=== PATIENT | male | born 1975 | race Caucasian/White ===

== ENCOUNTER 2018-06-05 12:39 | Inpatient (IN) | payer OTHER ==
[~2018-06-05] VITALS: Ht 175.3 cm; Wt 112.3 kg
[2018-06-05] MEDS ORDERED: SODIUM CHLORIDE FLUSH 10ML SYR IVF ONE (13:00)
[2018-06-05 13:23] LABS: BASOPHILS # (AUTO) 0.03 x10^3/uL (0-0.1); BASOPHILS % (AUTO) 1 % (0-1); EOSINOPHILS # (AUTO) 0.05 x10^3/uL (0-0.4); EOSINOPHILS % (AUTO) 1 % (1-7); LYMPHOCYTES # (AUTO) 1.67 x10^3/uL (1-3.4); LYMPHOCYTES % (AUTO) 26 % (22-44); MD NO; MEAN CORPUSCULAR HEMOGLOBIN 30.9 pg (27.5-34.5); MEAN CORPUSCULAR HGB CONC 34.3 g/dL (33.2-36.2); MEAN CORPUSCULAR VOLUME 90.2 fL (81-97); MEAN PLATELET VOLUME 9.2 fL (7.4-10.4); MONOCYTES # (AUTO) 0.26 x10^3/uL (0.2-0.8); MONOCYTES % (AUTO) 4 % (2-9); NEUTROPHILS # (AUTO) 4.44 x10^3/uL (1.8-6.8); NEUTROPHILS % (AUTO) 69 % (42-75); PLATELET COUNT 198 x10^3/uL (130-400); RED CELL DISTRIBUTION WIDTH 13.4 % (9.4-14.8)
[2018-06-05 13:37] LABS: ALBUMIN 3.8 g/dL (3.4-5.0); ANION GAP 3 mmol/L (5-15); CALCIUM 8.9 mg/dL (8.5-10.1); CHLORIDE 111 mmol/L (98-107)
[2018-06-05 13:44] LABS: ALANINE AMINOTRANSFERASE 35 U/L (12-78); ALKALINE PHOSPHATASE 77 U/L (45-117); BILIRUBIN,TOTAL 0.5 mg/dL (0.2-1.0); CREATININE 0.76 mg/dL (0.7-1.3); TOTAL PROTEIN 7.4 g/dL (6.4-8.2); TROPONIN I < 0.015 ng/mL (0.000-0.045)
[2018-06-05 15:28] VITALS: BP 147/98
[2018-06-05] MEDS ORDERED: morphine SULFATE 10 MG/ML, 1ML IVPush PRN (18:00)
[2018-06-05] MEDS ORDERED: NITROGLYCERIN 0.4 MG BOTTLE (25 TABS) SL PRN (18:00)
[2018-06-05] MEDS ORDERED: ONDANSETRON ODT 4 MG PO PRN (18:00)
[2018-06-05] MEDS ORDERED: BISACODYL 10 MG SUPP PR PRN (18:00)
[2018-06-05] MEDS ORDERED: POLYETHYLENE GLYCOL 17 GM PACKET PO PRN (18:00)
[2018-06-05] MEDS: HEPARIN 5,000 UNITS/ML, 1ML SQ SCH (18:46)
[2018-06-05 19:55] VITALS: BP 132/85
[2018-06-05 19:55] LABS: TROPONIN I < 0.015 ng/mL (0.000-0.045)
[2018-06-05] MEDS: SODIUM CHLORIDE FLUSH 10ML SYR IVF SCH (21:00)
[2018-06-05] MEDS: ACETAMINOPHEN 325 MG TABLET PO PRN (21:01)
[2018-06-06] VITALS (7 sets, daily range): BP systolic 116–136; BP diastolic 71–91
[2018-06-06 01:16] LABS: TROPONIN I < 0.015 ng/mL (0.000-0.045)
[2018-06-06] MEDS: HEPARIN 5,000 UNITS/ML, 1ML SQ SCH ×3 (02:56→16:38)
[2018-06-06] MEDS: ASPIRIN 81 MG TABLET EC PO SCH (05:20)
[2018-06-06 05:41] LABS: CHOL/HDL RATIO 4.5; LDL/HDL RATIO 2.8 (0.5-3.0)
[2018-06-06] MEDS: SENNA/DOCUSATE TABLET PO SCH (07:24)
[2018-06-06] MEDS: SODIUM CHLORIDE FLUSH 10ML SYR IVF SCH ×2 (11:13→20:24)
[2018-06-06] MEDS ORDERED: REGADENOSON 0.4 MG/5 ML SYRINGE ONE (12:11)
[2018-06-06] MEDS: SODIUM CHLORIDE 0.9% 1,000 ML IV SCH ×3 (16:39→22:39)
[2018-06-06 17:03] LABS: THYROID STIMULATING HORMONE 2.9 mIU/L (0.358-3.740)
[2018-06-06] MEDS: ACETAMINOPHEN 325 MG TABLET PO PRN (17:44)
[2018-06-06] MEDS: ATORVASTATIN 40 MG TABLET PO SCH (20:24)
[2018-06-07] VITALS (8 sets, daily range): BP systolic 116–160; BP diastolic 77–98
[2018-06-07] MEDS: HEPARIN 5,000 UNITS/ML, 1ML SQ SCH ×3 (02:04→17:07)
[2018-06-07] MEDS: ASPIRIN 81 MG TABLET EC PO SCH (04:16)
[2018-06-07] MEDS: SODIUM CHLORIDE 0.9% 1,000 ML IV SCH ×3 (04:16→22:10)
[2018-06-07] MEDS: SODIUM CHLORIDE FLUSH 10ML SYR IVF SCH ×2 (09:00→19:46)
[2018-06-07] MEDS: SENNA/DOCUSATE TABLET PO SCH (09:00)
[2018-06-07] MEDS: ATORVASTATIN 40 MG TABLET PO SCH (19:45)
[2018-06-07] MEDS: ACETAMINOPHEN 325 MG TABLET PO PRN (22:10)
[2018-06-08 01:59] VITALS: BP_SYST 129; BP_SYST 135; BP_SYST 151; BP_DIAS 87; BP_DIAS 89; BP_DIAS 96
[2018-06-08] MEDS: HEPARIN 5,000 UNITS/ML, 1ML SQ SCH ×2 (03:17→11:00)
[2018-06-08] MEDS: ASPIRIN 81 MG TABLET EC PO SCH (04:41)
[2018-06-08] MEDS: SODIUM CHLORIDE 0.9% 1,000 ML IV SCH (04:41)
[2018-06-08 07:23] VITALS: BP_SYST 121; BP_SYST 127; BP_DIAS 83; BP_DIAS 87
[2018-06-08 07:25] VITALS: BP 131/89
[2018-06-08] MEDS: SENNA/DOCUSATE TABLET PO SCH (07:32)
[2018-06-08] MEDS: SODIUM CHLORIDE FLUSH 10ML SYR IVF SCH (09:00)
[2018-06-08 13:10] VITALS: BP 137/98
[2018-06-08] MEDS ORDERED: ATOR40TA78 PO (16:02)
[2018-06-08] MEDS: ATORVASTATIN 40 MG TABLET PO SCH (17:37)
== END 2018-06-08 17:00 | disposition home or self-care (01) | DRG 74 ==
LOC: ED 14:14 → 5SO 14:15 → INTOOBSV 14:15 → OBSVTOIN 14:15 → ED 14:40
PROVIDERS: ADMIT Hospitalist; ATTEND Hospitalist
DX: G90.9 Disorder of the autonomic nervous system, unspecified (principal); E78.00 Pure hypercholesterolemia, unspecified; E78.5 Hyperlipidemia, unspecified; F41.1 Generalized anxiety disorder; R07.89 Other chest pain; I10 Essential (primary) hypertension; Z87.891 Personal history of nicotine dependence; Z88.2 Allergy status to sulfonamides; Z23 Encounter for immunization
CPT/HCPCS: 36415; 70551; 71045; 78452; 80053; 80061; 82533; 83735; 83880; 84443; 84484; 85025; 90656; 93005; 93017; 93306; 93880; 96372; 99285; G0378; J1644; J2785; A9502; C9898; J7030